=== PATIENT | female | born 1965 | race Two or more races ===

== ENCOUNTER → 2017-01-16 | Outpatient (CLI) | payer BC, OTHER ==
--- NOTE | 2017-01-16 09:45 | WOMENS IMAGING REPORT ---
EXAM DESCRIPTION: BILAT SCREENING MAMMO W/CAD COMPLETED DATE/TIME: 01/16/2017 7:56 am REASON FOR STUDY: ROUTINE SCREENING MAMMO, Z12.31 Z12.31 ENCNTR SCREEN MAMMOGRAM FOR MALIGNANT NEOP LASM OF AMANDA COMPARISON: 10/08/2010 TECHNIQUE: Standard craniocaudal and mediolateral oblique views of each breast recorded using digita l acquisition. LIMITATIONS: None. FINDINGS: No masses, calcifications or architectural distortion. No areas of suspicion. Read with the assistance of CAD. .[facility] - R2 Cenova Version 1.3 .[facility] - R2 Cenova Version 1.3 .[facility] - R2 Cenova Version 2.4 [place] [place] Cenova Version 2.4 .[facility] - R2 [employer] Version 9.2 IMPRESSION: NORMAL MAMMOGRAM. BIRADS 1. BREAST DENSITY: b. There are scattered areas of fibroglandular density. BIRAD: 1 NEGATIVE RECOMMENDATION: ROUTINE SCREENING COMMENT: The patient has been notified of the results by letter per MQSA requirements. Additional no tification policies are in place for contacting patient with suspicious or incomplete findings. Quality ID #[id number]: The [employer] recommends an annual screening mammogram for women aged 40 years or over. This facility utilizes a reminder system to ensure that all patients receive reminder letters, and/or direct phone calls for appointments. This includes reminders for routine scr eening mammograms, diagnostic mammograms, or other Breast Imaging Interventions when appropriate. Th is patient will be placed in the appropriate reminder system. The [employer] (ACR) has developed recommendations for screening MRI of the breast s in certain patient populations, to be used in conjunction with mammography. Breast MRI surveillanc e may be appropriate for women with more than 20% lifetime risk of developing breast cancer as deter mined by genetic testing, significant family history of the disease, or history of mantle radiation f or Hodgkins Disease. ACR Practice Guidelines 2008. TECHNICAL DOCUMENTATION: FINDING NUMBER: (1) ASSESSMENT: (1) JOB ID: [id number] [employer]- All Rights Reserved
== END ==
LOC: WI 07:21
PROVIDERS: ATTEND Physician Assistant
DX: Z12.31 Encounter for screening mammogram for malignant neoplasm of breast (principal)
CPT/HCPCS: 77067; G0202

== ENCOUNTER → 2017-03-29 | Outpatient (CLI) | payer OTHER ==
--- NOTE | 2017-03-29 11:18 | RADIOLOGY REPORT (SQ) ---
EXAM DESCRIPTION: U/S ABDOMEN COMPLETE W/DOPPLER COMPLETED DATE/TIME: 03/29/2017 10:19 am REASON FOR STUDY: UPPER ABD PAIN (R10.10) R10.10 UPPER ABDOMINAL PAIN, UNSPECIFIED COMPARISON: CT abdomen and pelvis 06/18/2008 TECHNIQUE: Dynamic and static grayscale images acquired of the abdomen and recorded on PACS. Additio nal selected color Doppler and spectral images recorded. LIMITATIONS: Midline bowel gas FINDINGS: PANCREAS: No masses. Visualized pancreatic duct normal caliber. LIVER: Echogenic, difficult to penetrate with the ultrasound energy from fatty infiltration. No flor s masses or biliary ductal dilatation. LIVER VASCULATURE: Normal directional flow of the main portal vein and hepatic veins. GALLBLADDER: Surgically absent ULTRASOUND-DETECTED ECKERT'S SIGN: Not applicable INTRAHEPATIC DUCTS AND COMMON DUCT: CBD and intrahepatic ducts normal caliber. No filling defects. INFERIOR VENA CAVA: Not well seen AORTA: No aneurysm. RIGHT KIDNEY: Normal size. Normal echogenicity. No solid or suspicious masses. No hydronephros is. No calcifications. LEFT KIDNEY: Normal size. Normal echogenicity. No solid or suspicious masses. No hydronephrosi s. No calcifications. SPLEEN: Normal size. No solid masses. PERITONEAL AND PLEURAL SPACES: No ascites or effusions. OTHER: No other significant finding. IMPRESSION: Post cholecystectomy Normal size liver with diffuse increased echogenicity from fatty infiltration. Otherwise unremarkable study TECHNICAL DOCUMENTATION: JOB ID: [id number]- All Rights Reserved
== END ==
LOC: RAD 09:33
PROVIDERS: ATTEND Physician Assistant
DX: R10.10 Upper abdominal pain, unspecified (principal)
CPT/HCPCS: 76700; 93976

== ENCOUNTER → 2017-09-25 | Outpatient (CLI) | payer SELFPAY ==
--- NOTE | 2017-09-25 12:30 | RADIOLOGY REPORT (SQ) ---
EXAM DESCRIPTION: HAND RIGHT 3 VIEWS COMPLETED DATE/TIME: 09/25/2017 9:42 am REASON FOR STUDY: M79.644 PAIN IN RIGHT FINGER(S) M79.644 PAIN IN RIGHT FINGER(S) COMPARISON: None. EXAM PARAMETERS: NUMBER OF VIEWS: Three views. TECHNIQUE: AP, lateral and oblique radiographic images acquired of the right hand. LIMITATIONS: None. FINDINGS: MINERALIZATION: Normal. BONES: No acute fracture or dislocation. No worrisome bone lesions. JOINTS: No effusions. SOFT TISSUES: Soft tissue vascular calcification. No foreign body. OTHER: No other significant finding. IMPRESSION: NEGATIVE STUDY OF THE RIGHT HAND. NO RADIOGRAPHIC EVIDENCE OF ACUTE INJURY. TECHNICAL DOCUMENTATION: JOB ID: [id number] [employer]- All Rights Reserved Reading location - IP/workstation name: [email or web address]
== END ==
LOC: RAD 09:27
PROVIDERS: ATTEND Physician Assistant
DX: M79.644 Pain in right finger(s) (principal)

== ENCOUNTER 2018-09-27 11:57 | Observation (INO) | payer BC ==
[2018-09-27] MEDS ORDERED: ASPIRIN 81 MG TABLET, CHEWABLE PO ONE (12:03)
[2018-09-27] MEDS ORDERED: NITROGLYCERIN 0.4 MG/TAB 25 TAB/BOTTLE ONE (12:28)
--- NOTE | 2018-09-27 12:35 | RADIOLOGY REPORT (SQ) ---
EXAM DESCRIPTION: CHEST SINGLE VIEW COMPLETED DATE/TIME: 09/27/2018 12:22 pm REASON FOR STUDY: cp COMPARISON: None. EXAM PARAMETERS: NUMBER OF VIEWS: One view. TECHNIQUE: Single frontal radiographic view of the chest acquired. RADIATION DOSE: NA LIMITATIONS: None. FINDINGS: LUNGS AND PLEURA: No opacities, masses or pneumothorax. No pleural effusion. MEDIASTINUM AND HILAR STRUCTURES: No masses. Contour normal. HEART AND VASCULAR STRUCTURES: Heart normal in size. Normal vasculature. BONES: No acute findings. HARDWARE: None in the chest. OTHER: No other significant finding. IMPRESSION: NO ACUTE RADIOGRAPHIC FINDING IN THE CHEST. TECHNICAL DOCUMENTATION: JOB ID: [id number] [employer]- All Rights Reserved Reading location - IP/workstation name: [email or web address]
[2018-09-27 12:45] LABS: ABSOLUTE EOSINOPHILS # (AUTO) 0.3 10^3/uL (0.0-0.6); ABSOLUTE LYMPHOCYTES (AUTO) 2.3 10^3/uL (0.5-4.7); ABSOLUTE MONOCYTES (AUTO) 0.5 10^3/uL (0.1-1.4); ABSOLUTE NEUT (AUTO) 5.5 10^3/uL (1.7-8.2); BASOPHILS % (AUTO) 0.4 % (0-2); EOSINOPHILS % (AUTO) 3.8 % (0-6); HEMATOCRIT 40.5 % (36.0-47.0); HEMOGLOBIN 13.9 g/dL (12.0-15.5); LYMPHOCYTES % (AUTO) 26.8 % (13-45); MEAN CORPUSCULAR HEMOGLOBIN 30.3 pg (27.0-33.4); MEAN CORPUSCULAR HGB CONC 34.3 g/dL (32.0-36.0); MEAN CORPUSCULAR VOLUME 88 fl (80-97); MONOCYTES % (AUTO) 5.5 % (3-13); PLATELET COUNT 270 10^3/uL (150-450); RED BLOOD COUNT 4.59 10^6/uL (3.72-5.28); RED CELL DISTRIBUTION WIDTH 12.9 % (11.5-14.0); SEGMENTED NEUTROPHILS % (AUTO) 63.5 % (42-78); TOTAL CELLS COUNTED % (AUTO) 100 %; WHITE BLOOD COUNT 8.7 10^3/uL (4.0-10.5)
[2018-09-27] MEDS ORDERED: NITROGLYCERIN 0.4 MG/TAB 25 TAB/BOTTLE SL PRN ×2 (12:48→18:36)
[2018-09-27 13:02] LABS: ALANINE AMINOTRANSFERASE 42 U/L (9-52); ALBUMIN 4.5 g/dL (3.5-5.0); ALKALINE PHOSPHATASE 83 U/L (38-126); ANION GAP 12 (5-19); ASPARTATE AMINO TRANSFERASE 33 U/L (14-36); BILIRUBIN,DIRECT 0.3 mg/dL (0.0-0.4); BILIRUBIN,TOTAL 0.4 mg/dL (0.2-1.3); BLOOD UREA NITROGEN 26 mg/dL (7-20); CALCIUM 9.6 mg/dL (8.4-10.2); CARBON DIOXIDE 24 mmol/L (22-30); CHLORIDE 101 mmol/L (98-107); CREATINE KINASE 76 U/L (30-135); GLUCOSE 333 mg/dL (75-110); POTASSIUM 5.2 mmol/L (3.6-5.0); SODIUM 137.1 mmol/L (137-145); TOTAL PROTEIN 8.1 g/dL (6.3-8.2)
[2018-09-27 13:11] LABS: LIPASE 648.2 U/L (23-300); TROPONIN I < 0.012 ng/mL
[2018-09-27 13:28] LABS: NT PRO BNP < 11 pg/mL (5-900)
--- NOTE | 2018-09-27 18:26 | ER Document Report ---
Entered by BENI DYER SCRIBE 09/27/18 1524 Acting as scribe for:BHAVIN PARIS DO ED General - General Chief Complaint: Chest Pain Stated Complaint: CHEST PAIN Time Seen by Provider: 09/27/18 12:20 Primary Care Provider: JOSAFAT DOWD PA-C [Primary Care Provider] - Follow up as needed Mode of Arrival: Ambulatory Information source: Patient Notes: Patient is a 53 year old female with insulin dependent diabetes presents to the emergency department complaining of chest pain and shortness of breath onset this morning. Patient states she has had general malaise for approximately 1 week. She states she woke up this morning, ate corn bread and had some milk and proceeded to "feel crazy". She states she checked her blood sugar and found it to be 300 and proceeded to take 30 units of insulin. She states shortly after she developed chest pain described as "an elephant sitting on my chest" and shortness of breath. She states she was given nitro by EMS which temporarily relieved her pain. She states her pain has returned and is radiates into her right shoulder and is exacerbated with deep breathing. Of significance, patient was diagnosed with a partial blockage a few years ago via catheterization in [place]. TRAVEL OUTSIDE OF THE [place] IN LAST 30 DAYS: No - Related Data Allergies/Adverse Reactions: ibuprofen [From Motrin] Adverse Reaction (Mild, Verified 07/31/15 11:07) stomach pain, NAUSEA Past Medical History - General Information source: Patient - Social History Smoking Status: Never Smoker Chew tobacco use (# tins/day): No Frequency of alcohol use: None Drug Abuse: None Family History: Reviewed & Not Pertinent Patient has suicidal ideation: No Patient has homicidal ideation: No - Past Medical History Cardiac Medical History: Reports: Hx Hypercholesterolemia, Hx Hypertension Pulmonary Medical History: Reports: Hx Asthma, Hx Sleep Apnea Endocrine Medical History: Reports: Hx Diabetes Mellitus Type 1 GI Medical History: Reports: Hx Gastroesophageal Reflux Disease Musculoskeletal Medical History: Reports Hx Arthritis Past Surgical History: Reports: Hx Section - x2, Hx Cholecystectomy, Hx Orthopedic Surgery - right wrist surgery - Immunizations Hx Diphtheria, Pertussis, Tetanus Vaccination: Yes - [id number] Review of Systems - Review of Systems Constitutional: No symptoms reported EENT: No symptoms reported Cardiovascular: See HPI, Chest pain Respiratory: See HPI, Short of breath Gastrointestinal: No symptoms reported Genitourinary: No symptoms reported Female Genitourinary: No symptoms reported Musculoskeletal: No symptoms reported Skin: No symptoms reported Hematologic/Lymphatic: No symptoms reported Neurological/Psychological: No symptoms reported -: Yes All other systems reviewed and negative Physical Exam - Vital signs Vitals: Pulse Ox 100 09/27/18 12:08 - Notes Notes: GENERAL: Alert, interacts well. No acute distress. HEAD: Normocephalic, atraumatic. EYES: Pupils equal, round, and reactive to light. Extraocular movements intact. ENT: Oral mucosa moist, tongue midline. NECK: Full range of motion. Supple. Trachea midline. LUNGS: Clear to auscultation bilaterally, no wheezes, rales, or rhonchi. No respiratory distress. Tender to palpation to the sternum which reproduces chief complaint. HEART: Regular rate and rhythm. No murmurs, gallops, or rubs. ABDOMEN: Soft, non-tender, no guarding, rigidity or rebounding. Non-distended. Bowel sounds present in all 4 quadrants. EXTREMITIES: Moves all 4 extremities spontaneously. NEUROLOGICAL: Alert and oriented x3. Normal speech. PSYCH: Normal affect, normal mood. SKIN: Warm, dry, normal turgor. Raised erythema across the upper and central abdomen, some below the umbilicus does cross midline. Erythema and skin break down underneath pantus, consistent with a yeast infection. Course - Re-evaluation Re-evalutation: 09/27/18 13:35 CBC unremarkable, d-dimer negative at 0.28, CMP shows slightly elevated potassium at 5.2, glucose is elevated at 333, lipase is elevated at 648.2, chest x-ray is unremarkable. Patient does have some sternal tenderness to palpation and mild epigastric tenderness to palpation, there is no right upper quadrant tenderness to palpation either. 09/27/18 14:[address] La rock, would like to repeat cardiac enzymes and then decide on disposition. I am agreeable to this plan. 09/27/18 18:12 Repeat cardiac enzymes are negative, he will place the patient on his service in observation status. He will continue to trend enzymes, consider stress test in the morning and treat the pancreatitis. Patient has risk factors for ischemic cardiac disease however I presently think this is more likely to be pancreatitis. Given her risk factors Dr. La rock agrees it is more prudent to watch the patient overnight. He is aware that the patient still has approximately 2 out of 5 pain however we both think this is coming from the pancreatitis. 09/27/18 18:25 - Vital Signs Vital signs: Temp Pulse Resp BP Pulse Ox 100 09/27/18 12:08 - Laboratory Result Diagrams: 09/27/18 12:20 09/27/18 12:20 Laboratory results interpreted by me: 09/27/18 12:20 Potassium 5.2 H BUN 26 H Glucose 333 H Lipase 648.2 H - EKG Interpretation by Me Additional EKG results interpreted by me: 09/27/18 18:24 EKG shows sinus tachycardia at a rate of 100, normal axis, normal intervals, no ST segment elevations or depressions, no T wave inversions, T wave flattening in 1 and aVL per my interpretation. Also flattened in V6 per my interpretation. Discharge - Discharge Clinical Impression: Chest pain, rule out acute myocardial infarction Pancreatitis Qualifiers: Chronicity: acute Pancreatitis type: unspecified pancreatitis type Acute pancreatitis complication: no infection or necrosis Qualified Code(s): K85.90 - Acute pancreatitis without necrosis or infection, unspecified Condition: Stable Disposition: ADMITTED OBSERVATION Admitting Provider: Hospitalist - [facility] Admitted: Telemetry Referrals: JOSAFAT DOWD PA-C [Primary Care Provider] - Follow up as needed I personally performed the services described in the documentation, reviewed and edited the documentation which was dictated to the scribe in my presence, and it accurately records my words and actions.
[2018-09-27] MEDS ORDERED: ONDANSETRON HCL INJ/PF 4 MG/2 ML SDV IV PRN (18:31)
[2018-09-27] MEDS ORDERED: OXYCODONE-ACETAMINOPHEN 5-325 MG TABLET PO PRN (18:31)
[2018-09-27] MEDS ORDERED: DEXTROSE 40% GEL 15 GM TUBE PO PRN ×2 (18:36)
[2018-09-27] MEDS ORDERED: DEXTROSE 50%-WATER 25 GM/50 ML DISP.SYRIN IV PRN ×2 (18:36)
[2018-09-27] MEDS ORDERED: GLUCAGON,HUMAN RECOMB 1 MG INJ IM PRN (18:36)
--- NOTE | 2018-09-27 18:51 | PDOC H&P ---
History of Present Illness Admission Date/PCP: 09/27/18 18:30 JOSAFAT DOWD PA-C History of Present Illness: BENJAMIN MERCEDES is a 53 year old female patient with past medical history of obesity and type 2 diabetes mellitus presents with chief complaint of chest pain. Reports she has been in her usual baseline state of health up until this morning when she started to have chest pain while working on her computer. She described the chest pain as "if an elephant is sitting on my chest" and it radiates to her right shoulder. Patient endorses associated shortness of breath. The chest pain is relieved by nitro which was given by EMS. Patient denies any cough palpitation or diaphoresis. Denies any nausea vomiting abdominal pain no change in her bowel habits. No urinary complaints. 2 sets of cardiac enzymes are negative. She has incidental elevated lipase of 682 but jamie baird does not have any complaint of abdominal pain. Past Medical History Cardiac Medical History: Reports: Hyperlipidema, Hypertension Denies: Coronary Artery Disease, Myocardial Infarction Pulmonary Medical History: Reports: Asthma, Sleep Apnea Denies: Bronchitis, Chronic Obstructive Pulmonary Disease (COPD), Pneumonia, Tuberculosis Neurological Medical History: Denies: Seizures Endocrine Medical History: Reports: Diabetes Mellitus Type 1 GI Medical History: Reports: Gastroesophageal Reflux Disease Musculoskeltal Medical History: Reports: Arthritis Hematology: Denies: Anemia Past Surgical History Past Surgical History: Reports: Section - x2, Cholecystectomy, Orthopedic Surgery - right wrist surgery Denies: Pacemaker Social History Smoking Status: Never Smoker Hx Recreational Drug Use: No Hx Prescription Drug Abuse: No - Advance Directive Resuscitation Status: Full Code Family History Family History: Reviewed & Not Pertinent Parental Family History Reviewed: Yes Children Family History Reviewed: Yes Sibling(s) Family History Reviewed.: Yes Medication/Allergy Home Medications: Metformin HCl [Glucophage] 1,000 mg PO BID 12/11/11 Pravastatin Sodium 40 mg PO DAILY 12/11/11 Cetirizine HCl [Zyrtec] 10 mg PO DAILY 07/29/15 Diclofenac Sodium [Voltaren] 75 mg PO DAILY 07/29/15 Glipizide [Glipizide Xl] 5 mg PO DAILY 07/29/15 Insulin Glargine,Hum.rec.anlog [Lantus] 40 unit SQ QHS 07/29/15 Lisinopril/Hydrochlorothiazide [Lisinopril-Hctz 20-25 mg Tab] 1 each PO DAILY 07/29/15 Diphenhydramine HCl [Benadryl] 25 mg PO ASDIR PRN 07/31/15 Allergies/Adverse Reactions: ibuprofen [From Motrin] Adverse Reaction (Mild, Verified 07/31/15 11:07) stomach pain, NAUSEA Review of Systems Constitutional: ABSENT: chills, fever(s), headache(s), weight gain, weight loss Eyes: ABSENT: visual disturbances Ears: ABSENT: hearing changes Cardiovascular: PRESENT: chest pain Respiratory: PRESENT: dyspnea Gastrointestinal: ABSENT: abdominal pain, constipation, diarrhea, hematemesis, hematochezia, nausea, vomiting Genitourinary: ABSENT: dysuria, hematuria Musculoskeletal: ABSENT: joint swelling Integumentary: ABSENT: rash, wounds Neurological: ABSENT: abnormal gait, abnormal speech, confusion, dizziness, focal weakness, syncope Psychiatric: ABSENT: anxiety, depression, homidical ideation, suicidal ideation Endocrine: ABSENT: cold intolerance, heat intolerance, polydipsia, polyuria Hematologic/Lymphatic: ABSENT: easy bleeding, easy bruising Physical Exam Vital Signs: Temp Pulse Resp BP Pulse Ox 100 09/27/18 12:08 Intake & Output 09/26/18 09/27/18 09/28/18 06:59 06:59 06:59 Weight 82.554 kg General appearance: PRESENT: no acute distress, well-developed, well-nourished Head exam: PRESENT: atraumatic, normocephalic Eye exam: PRESENT: conjunctiva pink, EOMI, PERRLA. ABSENT: scleral icterus Ear exam: PRESENT: normal external ear exam Mouth exam: PRESENT: moist, tongue midline Neck exam: ABSENT: carotid bruit, JVD, lymphadenopathy, thyromegaly Respiratory exam: PRESENT: clear to auscultation venita. ABSENT: rales, rhonchi, wheezes Cardiovascular exam: PRESENT: RRR. ABSENT: diastolic murmur, rubs, systolic murmur Pulses: PRESENT: normal dorsalis pedis pul Vascular exam: PRESENT: normal capillary refill GI/Abdominal exam: PRESENT: normal bowel sounds, soft. ABSENT: distended, gua rding, mass, organolmegaly, rebound, tenderness Rectal exam: PRESENT: deferred Extremities exam: PRESENT: full ROM. ABSENT: calf tenderness, clubbing, pedal edema Neurological exam: PRESENT: alert, awake, oriented to person, oriented to place, oriented to time, oriented to situation, CN II-XII grossly intact. ABSENT: egrri r sensory deficit Psychiatric exam: PRESENT: appropriate affect, normal mood. ABSENT: homicidal ideation, suicidal ideation Skin exam: PRESENT: dry, intact, warm. ABSENT: cyanosis, rash Results Laboratory Results: 09/27/18 12:20 09/27/18 12:20 09/27/18 09/27/18 12:20 12:20 WBC 8.7 RBC 4.59 Hgb 13.9 Hct 40.5 MCV 88 MCH 30.3 MCHC 34.3 RDW 12.9 Plt Count 270 Seg Neutrophils % 63.5 Lymphocytes % 26.8 Monocytes % 5.5 Eosinophils % 3.8 Basophils % 0.4 Absolute Neutrophils 5.5 Absolute Lymphocytes 2.3 Absolute Monocytes 0.5 Absolute Eosinophils 0.3 Absolute Basophils 0.0 Sodium 137.1 Potassium 5.2 H Chloride 101 Carbon Dioxide 24 Anion Gap 12 BUN 26 H Creatinine 0.86 Est GFR ( Amer) > 60 Est GFR (Non-Af Amer) > 60 Glucose 333 H Calcium 9.6 Total Bilirubin 0.4 AST 33 ALT 42 Alkaline Phosphatase 83 Total Protein 8.1 Albumin 4.5 Lipase 648.2 H 09/27/18 09/27/18 09/27/18 12:20 12:20 16:15 Creatine Kinase 76 CK-MB (CK-2) 0.30 Troponin I < 0.012 < 0.012 NT-Pro-B Natriuret Pep < 11 Impressions: Chest X-Ray 09/27/18 12:03 IMPRESSION: NO ACUTE RADIOGRAPHIC FINDING IN THE CHEST. Assessment & Plan - Diagnosis (1) Chest pain Qualifiers: Chest pain type: other chest pain Qualified Code(s): R07.89 - Other chest pain; R07.8 - Other chest pain Is this a current diagnosis for this admission?: Yes Plan: Since patient has multiple risk factor for acute coronary syndrome it is appropriate to admit this patient for observation and subjected to cardiac stress test in the morning. (2) Hypertension Qualifiers: Hypertension type: essential hypertension Qualified Code(s): I10 - Essential (primary) hypertension Is this a current diagnosis for this admission?: Yes Plan: Continue home medication (3) Hyperlipidemia Is this a current diagnosis for this admission?: Yes Plan: Continue home medication (4) Type 2 diabetes mellitus Is this a current diagnosis for this admission?: Yes Plan: We will put her on sliding scale and continue home medication except for metformin
[2018-09-27] MEDS: ENOXAPARIN SODIUM INJ 40 MG/0.4 ML DISP.SYRIN SUBCUT SCH (19:41)
[2018-09-27] MEDS: INSULIN LISPRO 100 UNIT/ML 3 ML VIAL SUBCUT SCH (21:08)
[2018-09-27] MEDS: FAMOTIDINE 20 MG TABLET PO SCH (22:55)
--- NOTE | 2018-09-28 08:03 | EKG REPORT ---
SEVERITY:- BORDERLINE ECG - SINUS TACHYCARDIA BORDERLINE T WAVE ABNORMALITIES : Confirmed by: Allen Waters MD 28-Sep-2018 08:02:25
[2018-09-28] MEDS: INSULIN LISPRO 100 UNIT/ML 3 ML VIAL SUBCUT SCH ×2 (08:05→11:54)
[2018-09-28 08:55] LABS: DIRECT LDL 99 mg/dL (<100); TRIGLYCERIDES 831 mg/dL (<150)
[2018-09-28 11:35] VITALS: BP 143/76
[2018-09-28] MEDS: FAMOTIDINE 20 MG TABLET PO SCH (11:54)
[2018-09-28] MEDS: ENOXAPARIN SODIUM INJ 40 MG/0.4 ML DISP.SYRIN SUBCUT SCH (11:58)
[2018-09-28] MEDS ORDERED: REGADENOSON INJ 0.4 MG/5 ML DISP.SYRIN IV ONE (12:15)
--- NOTE | 2018-09-28 13:53 | PDOC DISCHARGE SUMMARY ---
General - Admit/Disc Date/PCP Admission Date/Primary Care Provider: 09/27/18 18:30 JOSAFAT DOWD PA-C Discharge Date: 09/28/18 - Discharge Diagnosis (1) Hyperglyceridemia Is this a current diagnosis for this admission?: Yes Summary: Patient started on TriCor (2) Chest pain Is this a current diagnosis for this admission?: Yes (3) Hypertension Is this a current diagnosis for this admission?: Yes (4) Hyperlipidemia Is this a current diagnosis for this admission?: Yes (5) Type 2 diabetes mellitus Is this a current diagnosis for this admission?: Yes - Additional Information Resuscitation Status: Full Code Home Medications: Diclofenac Sodium 75 mg PO BID 09/27/18 Diphenhydramine HCl [Benadryl] 50 mg PO QHS 09/27/18 Gabapentin [Neurontin 400 mg Capsule] 400 mg PO QAM 09/27/18 Gabapentin [Neurontin 400 mg Capsule] 800 mg PO QHS 09/27/18 Glipizide [Glocotrol 5 Mg Tablet] 10 mg PO QHS 09/27/18 Insulin Glargine,Hum.rec.anlog [Lantus Insulin Inj 300 Unit/3 ml Pen] 30 unit SUBCUT NOON 09/27/18 Metformin HCl [Glucophage] 1,000 mg PO BID 09/27/18 History of Present Illness History of Present Illness: BENJAMIN MERCEDES is a 53 year old female patient with past medical history of obesity and type 2 diabetes mellitus presents with chief complaint of chest pain. Reports she has been in her usual baseline state of health up until this morning when she started to have chest pain while working on her computer. She described the chest pain as "if an elephant is sitting on my chest" and it radiates to her right shoulder. Patient endorses associated shortness of breath. The chest pain is relieved by nitro which was given by EMS. Patient denies any cough palpitation or diaphoresis. Denies any nausea vomiting abdominal pain no change in her bowel habits. No urinary complaints. 2 sets of cardiac enzymes are negative. She has incidental elevated lipase of 682 but patient does not have any complaint of abdominal pain. Hospital Course Hospital Course: BENJAMIN MERCEDES is a 53 year old female patient with past medical history of obesity and type 2 diabetes mellitus presents with chief complaint of chest pain. Since patient has multiple risk factors for acute coronary syndrome she is admitted for observation and we will cycle her cardiac enzymes and she has also cardiac stress test this morning. History set of cardiac enzym es are negative and the cardiac stress test is reported normal. Her blood work shows hemoglobin A1c of 9.6 and her lipid panel shows a triglyceride level of 831 and total cholesterol of 241. Her lipase level normalized. Patient admits that she eats indiscriminately fast food and fried chickens and fried chicken. I counseled her to do lifestyle modification in the form of healthy diet regular exercise and weight loss. For the triglyceridemia I will start her on TriCor. Patient also advised to follow-up with her primary care physician to adjust her diabetic medications.. Physical Exam Vital Signs: Temp Pulse Resp BP Pulse Ox 97.7 F 105 H 17 143/76 H 100 09/28/18 08:00 09/28/18 08:00 09/28/18 08:00 09/28/18 08:00 09/28/18 08:00 Intake & Output 09/27/18 09/28/18 09/29/18 06:59 06:59 06:59 Intake Total 200 Balance 200 Weight 83.3 kg Results Laboratory Results: 09/27/18 12:20 09/27/18 12:20 09/28/18 09/28/18 07:10 07:10 Triglycerides 831 H Cholesterol 241.60 H LDL Cholesterol Direct 99 VLDL Cholesterol UNABLE TO CALCULATE HDL Cholesterol 31 L Lipase 226.7 09/27/18 09/27/18 09/27/18 12:20 12:20 16:15 Creatine Kinase 76 CK-MB (CK-2) 0.30 Troponin I < 0.012 < 0.012 NT-Pro-B Natriuret Pep < 11 09/28/18 07:10 Creatine Kinase CK-MB (CK-2) Troponin I < 0.012 NT-Pro-B Natriuret Pep Impressions: Chest X-Ray 09/27/18 12:03 IMPRESSION: NO ACUTE RADIOGRAPHIC FINDING IN THE CHEST. Qualifiers - * PATIENT BEING DISCHARGED WITH ANY OF THE FOLLOWING DIAGNOSIS: No
--- NOTE | 2018-10-02 00:22 | DRAGON STRESS TEST REPORT ---
Intravenous Lexiscan Cardiolite stress test using single photon emmision computerized tomography. Date of procedure: 09/28/2018. Ordering Provider: Dr. Trotter. Patient's status: Up in Patient Indication: Chest pain. Coronary risk factors: Age, diabetes, hypertension, and dyslipidemia. Resting EKG: Sinus Rhythm. Poor R wave leads V1 to leads V4. Stress EKG: No changes of ischemia. Reason for termination: Protocol. Conclusions: Normal EKG and hemodynamic response to IV Lexiscan. Nuclear data: At rest the patient was given 9.83 millicuries of technetium 99m sestamibi injected intravenously. As per protocol rest non gated SPECT images were obtained. Subsequently the patient was given intravenous Lexiscan at a dose of 0.4 mg in 5 mL intravenously, followed by flush with normal saline. Subsequently the stress dose of 31.5 millicuries of technetium 99m sestamibi was injected intravenously. As per protocol stress gated images were obtained. Nuclear interpretation: Review of images showed that all segments of the myocardium had normal perfusion at rest, and normal perfusion post stress with IV Lexiscan. All segments of the myocardium had normal motion, contraction, and thickening by gated study. T. I D. ratio was read asab normal at 1.39. Visually this is not reliable.. There is no transient ischemic dilatation of the left ventricle. Computer read rest, and stress left ventricular ejection fraction were 61 %, and 59 %, respectively. Conclusion: 1. There is no scintigraphic evidence of Lexiscan induced myocardial ischemia. 2. There is no scintigraphic evidence of myocardial infarction/scar. Recommendations: Aggressive risk factor modification, and treating the underlying co- morbidities. MTDD
== END 2018-09-28 15:00 | disposition home or self-care (01) ==
LOC: ER 11:57 → EH 18:30 → 4W 21:15
PROVIDERS: ADMIT Internal Medicine; ATTEND Internal Medicine
DX: E78.1 Pure hyperglyceridemia (principal); R07.9 Chest pain, unspecified; I10 Essential (primary) hypertension; E78.5 Hyperlipidemia, unspecified; R06.02 Shortness of breath; E11.9 Type 2 diabetes mellitus without complications; R74.8 Abnormal levels of other serum enzymes; R53.81 Other malaise; R10.816 Epigastric abdominal tenderness; R10.11 Right upper quadrant pain; R00.0 Tachycardia, unspecified; L53.9 Erythematous condition, unspecified; Z90.49 Acquired absence of other specified parts of digestive tract; Z79.4 Long term (current) use of insulin; Z98.890 Other specified postprocedural states
CPT/HCPCS: 93005; 99285; 96372; 36415 ×2; 82553; 82962 ×2; 82550; 83690 ×2; 85025; 80053; 84484 ×2; 83036; 85379; 80061; 83880; 93017; 71045; 78452; 93010; G0378 ×3; A9500; J2785; J1815 ×2; J1650 ×2

== ENCOUNTER 2019-03-24 15:24 | Emergency (ER) | payer SELFPAY ==
[2019-03-24] MEDS ORDERED: AMOXICILLIN TR/POT CLAVULANATE 500-125 MG TAB PO ONE (17:57)
--- NOTE | 2019-03-24 18:02 | ER Document Report ---
HPI - HPI Patient complains to provider of: abscess face Time Seen by Provider: 03/24/19 16:55 Pain Level: 2 Context: 54-year-old female with insulin-dependent diabetes mellitus and hypertension presents to the emergency department with an abscess on her face. She said that she first noticed it Monday instead of is a pimple, she tried to pop it, and then it grew in size and it is very painful and red. Patient states that she is having mild difficulty opening up her jaw all the way, is having pain just below her eye and right next to her nostril. Patient is able to swallow. Patient denies fevers or chills, denies any airway obstruction or shortness of breath, denies any nausea or vomiting, no other complaints. Patient states that she had some "old amoxicillin laying around so I took 2 pills". - CONSTITUTIONAL Constitutional: DENIES: Fever - REPRODUCTIVE Reproductive: DENIES: : Past Medical History - Social History Smoking Status: Never Smoker Chew tobacco use (# tins/day): No Drug Abuse: None Family History: Reviewed & Not Pertinent Patient has suicidal ideation: No Patient has homicidal ideation: No - Past Medical History Cardiac Medical History: Reports: Hx Hypercholesterolemia, Hx Hypertension Denies: Hx Coronary Artery Disease, Hx Heart Attack Pulmonary Medical History: Reports: Hx Asthma, Hx Sleep Apnea Denies: Hx Bronchitis, Hx COPD, Hx Pneumonia, Hx Tuberculosis Neurological Medical History: Denies: Hx Cerebrovascular Accident, Hx Seizures Endocrine Medical History: Reports: Hx Diabetes Mellitus Type 1, Hx Diabetes Mellitus Type 2 Renal/ Medical History: Denies: Hx Peritoneal Dialysis GI Medical History: Reports: Hx Gastroesophageal Reflux Disease Musculoskeletal Medical History: Reports Hx Arthritis Past Surgical History: Reports: Hx Section - x2, Hx Cholecystectomy, Hx Orthopedic Surgery - right wrist surgery. Denies: Hx Pacemaker - Immunizations Hx Diphtheria, Pertussis, Tetanus Vaccination: Yes - [id number] Vertical Provider Document - CONSTITUTIONAL Notes: PHYSICAL EXAMINATION: Reviewed vital signs and charting by RN GENERAL: Alert, interacts well. No acute distress. HEAD: Normocephalic, atraumatic. EYES: Pupils equal and round. Extraocular movements intact. ENT: Oral mucosa moist, tongue midline. NECK: Full range of motion. Trachea midline. LUNGS: Clear to auscultation bilaterally, no wheezes, rales, or rhonchi. No respiratory distress. HEART: Regular rate and rhythm. No murmur ABDOMEN: soft, non-tender. No distention. Bowel sounds present EXTREMITIES: Moves all 4 extremities spontaneously. No edema, No cyanosis. PSYCH: Normal affect, normal mood. SKIN: Warm, dry, normal turgor. Right cheek with an abscess with a 3 x 3 cm area of induration and a very small area of fluctuance external, there is a small amount of surrounding cellulitis, palpating the vehicle space there was no area of fluctuance amenable to a needle aspiration - INFECTION CONTROL TRAVEL OUTSIDE OF THE [place] IN LAST 30 DAYS: No Course - Re-evaluation Re-evalutation: 03/24/19 18:[address] Vargas ENT on-call, who agreed to see the patient in his office in the morning. The abscess was not amendable to an incision and drainage due to the location and there was no area in the bugle aspect amendable to aspiration with an 18-gauge needle. His recommendation was to place her on Augmentin every 12 hours for 7 days and I gave patient referral to see him in the morning. Patient agrees with plan and she is stable for discharge. - Vital Signs Vital signs: Temp Pulse Resp BP Pulse Ox 98.5 F 100 18 122/69 96 03/24/19 15:47 03/24/19 15:47 03/24/19 15:47 03/24/19 15:47 03/24/19 15:47 Discharge - Discharge Clinical Impression: Abscess, Facial cellulitis Condition: Good Disposition: HOME, SELF-CARE Instructions: Abscess ([facility]) Additional Instructions: You were seen in the emergency department this afternoon for cellulitis of the face and an abscess. Because there was not an area inside her mouth to do a needle aspiration it was not appropriate to perform an incision and drainage on your face. Because of that we are going to place you on an antibiotic called Augmentin. You will get your first dose here and you will take 1 pill in the morning and in the evening for 7 days. Also, I have given you a referral to Dr. Vargas, ENT, and you need to call his office in the morning for follow-up and is he may be able to drain the abscess. Please return to the emergency department if you start to get airway compromise, acute shortness of breath, severe lockjaw, high fevers, you pass out, or you have any other concerning symptoms. Prescriptions: Amox Tr/Potassium Clavulanate [Augmentin 875-125 Tablet] 1 tab PO BID 14 Days tablet Forms: Return to Work Referrals: JOSAFAT DOWD PA-C [Primary Care Provider] - Follow up as needed MEGGAN VARGAS MD [ACTIVE STAFF] - 03/25/19 8:00 am
[2019-03-24 18:27] VITALS: BP 129/70
== END 2019-03-24 18:27 | disposition home or self-care (01) ==
LOC: ER 15:24
DX: L02.01 Cutaneous abscess of face (principal); L03.211 Cellulitis of face; R68.84 Jaw pain; J45.909 Unspecified asthma, uncomplicated; E11.9 Type 2 diabetes mellitus without complications; Z79.4 Long term (current) use of insulin; I10 Essential (primary) hypertension
CPT/HCPCS: 99282

== ENCOUNTER → 2020-02-04 | Outpatient (CLI) | payer BC ==
--- NOTE | 2020-02-04 14:29 | RADIOLOGY REPORT (SQ) ---
EXAM DESCRIPTION: U/S RETROPERITON (RENAL/AORTA) IMAGES COMPLETED DATE/TIME: 02/04/2020 2:14 pm REASON FOR STUDY: R31.9 HEMATURIA, UNSPECIFIED R31.9 HEMATURIA, UNSPECIFIED COMPARISON: None. TECHNIQUE: Dynamic and static grayscale images acquired of the kidneys and bladder and recorded on P ACS. Additional selected color Doppler and spectral images recorded. LIMITATIONS: None. FINDINGS: RIGHT KIDNEY: Normal size, 11.8 cm. Normal echogenicity. No solid or suspicious masses. 2 .5 cm lower pole cyst. No hydronephrosis. No calcifications. LEFT KIDNEY: Normal size, 11.7 cm. Normal echogenicity. No solid or suspicious masses. No hydronephr osis. No calcifications. BLADDER: No masses. Bilateral ureteral jets. OTHER FINDINGS: No other significant finding. IMPRESSION: NORMAL RENAL AND BLADDER ULTRASOUND. TECHNICAL DOCUMENTATION: JOB ID: [id number] 2010 [employer]- All Rights Reserved Reading location - IP/workstation name: [email or web address]
--- NOTE | 2020-02-04 15:30 | RADIOLOGY REPORT (SQ) ---
EXAM DESCRIPTION: KUB/ABDOMEN (SINGLE VIEW) IMAGES COMPLETED DATE/TIME: 02/04/2020 1:54 pm REASON FOR STUDY: R10.12 UNSPECIFIED ABDOMINAL PAIN R31.9 HEMATURIA, UNSPECIFIED COMPARISON: None. NUMBER OF VIEWS: One view. TECHNIQUE: Supine radiographic image of the abdomen acquired. LIMITATIONS: None. FINDINGS: BOWEL GAS PATTERN: Normal bowel gas pattern. No dilated loops. CALCIFICATIONS: No suspicious calcifications. SOFT TISSUES: No gross mass or suggestion of organomegaly. HARDWARE: None in the abdomen. BONES: No acute fracture. No worrisome bone lesions. OTHER: No other significant finding. IMPRESSION: NO RADIOGRAPHIC EVIDENCE FOR ACUTE ABDOMINAL DISEASE. TECHNICAL DOCUMENTATION: JOB ID: [id number] 2010 [employer]- All Rights Reserved Reading location - IP/workstation name: [email or web address]
== END ==
LOC: RAD 13:34
PROVIDERS: ATTEND Physician Assistant
DX: R31.9 Hematuria, unspecified (principal); M54.6 Pain in thoracic spine
CPT/HCPCS: 74018; 76770

== ENCOUNTER → 2020-02-11 | Outpatient (CLI) | payer BC ==
--- NOTE | 2020-02-11 11:07 | RADIOLOGY REPORT (SQ) ---
EXAM DESCRIPTION: CT ABDOMEN WITH IV ORAL CONT IMAGES COMPLETED DATE/TIME: 02/11/2020 8:39 am REASON FOR STUDY: ABD PAIN, LUQ (R10.12) R10.12 LEFT UPPER QUADRANT PAIN COMPARISON: Renal ultrasound dated 02/04/2020 TECHNIQUE: CT scan of the abdomen performed with intravenous and with oral contrast using helical sc anning technique with dynamic intravenous contrast injection. Images reviewed with lung, soft tissue, and bone windows. Reconstructed coronal and sagittal MPR images reviewed. Delayed images for evaluat ion of the urinary system also acquired and evaluated. All images stored on PACS. All CT scanners at this facility use dose modulation, iterative reconstruc tion, and/or weight based dosing when appropriate to reduce radiation dose to as low as reasonably ac hievable (ALARA). [facility]: Dose Right [facility]: CareDose [facility]: Dose Right [facility]: Teradose 4D [facility]: Mobile2Me CONTRAST TYPE AND DOSE: contrast/concentration: Isovue 350.00 mmol/ml; Total Contrast Delivered: 97. 0 ml; Total Saline Delivered: 72.0 ml RENAL FUNCTION: Creatinine 0.7 RADIATION DOSE: CT Rad equipment meets quality standard of care and radiation dose reduction techniq ues were employed. CTDIvol: 19.2 - 19.2 mGy. DLP: 1313 mGy-cm. . LIMITATIONS: None. FINDINGS: LOWER CHEST: No significant findings. No nodules or infiltrates. LIVER: Hepatic steatosis. Hepatomegaly. The liver measures 20.3 cm in cranial caudal dimensions. N o focal masses. SPLEEN: Normal size. No focal lesions. PANCREAS: No masses. No significant calcifications. No adjacent inflammation or peripancreatic fluid collections. Pancreatic duct not dilated. GALLBLADDER: Surgically absent. ADRENAL GLANDS: No significant masses or asymmetry. RIGHT KIDNEY AND URETER: No solid masses. There is a simple cyst off the inferior pole the right kid perico. This measures approximately 2 cm. No significant calcifications. No hydronephrosis or hydro ureter. LEFT KIDNEY AND URETER: There is a small hypoattenuating lesions in the left kidney this is in the mi dpole. It is too small to accurately characterize. No significant calcifications. No hydronephro sis or hydroureter. AORTA AND VESSELS: No aneurysm. No dissection. Renal arteries, SMA, celiac without stenosis. RETROPERITONEUM: No retroperitoneal adenopathy, hemorrhage or masses. BOWEL AND PERITONEAL CAVITY: No masses or inflammatory changes. No free fluid or peritoneal masses. APPENDIX: Not visualized. ABDOMINAL WALL: No masses. No hernias. BONES: No significant or acute findings. OTHER: No other significant finding. IMPRESSION: Hepatomegaly and hepatic steatosis. No other significant findings in the abdomen. TECHNICAL DOCUMENTATION: JOB ID: [id number] Quality ID # [id number]: Final reports with documentation of one or more dose reduction techniques (e.g., Au tomated exposure control, adjustment of the mA and/or kV according to patient size, use of iterative reconstruction technique) 2010 [employer]- All Rights Reserved Reading location - IP/workstation name: [email or web address]
== END ==
LOC: RAD 07:56
PROVIDERS: ATTEND Physician Assistant
DX: R10.12 Left upper quadrant pain (principal)
CPT/HCPCS: 74160; 82565

== ENCOUNTER 2020-05-31 10:22 | Emergency (ER) | payer BC ==
--- NOTE | 2020-05-31 11:33 | ER Document Report ---
ED Medical Screen (RME) - General Chief Complaint: Chest Pain > 30 Stated Complaint: SHORTNESS OF BREATH,DIZZINESS,BACK PAIN,CHEST PAIN Time Seen by Provider: 05/31/20 11:30 Primary Care Provider: JOSAFAT DOWD PA-C [Primary Care Provider] - Follow up as needed Mode of Arrival: Ambulatory Information source: Patient Notes: 55-year-old female presented to ED with chest pain going through to the back with body aches cough and congestion. She does have known coronary artery disease. She states she had a heart cath in the distant past and they told her that there was 50% clot at that time but did not need a stent at that time. She also has diabetes cholesterol. She states she was tested for Covid about 3 weeks ago but at that time she did not have any symptoms and now she does. Patient is alert she does seem to be having some trouble breathing to the mask lungs sound clear at this time. We will get all of the Covid testing with a strep flu as well as the chest pain protocol. I have greeted and performed a rapid initial assessment of this patient. A comprehensive ED assessment and evaluation of the patient, analysis of test results and completion of medical decision making process will be conducted by an additional ED providers. TRAVEL OUTSIDE OF THE [place] IN LAST 30 DAYS: No - Related Data Allergies/Adverse Reactions: ibuprofen [From Motrin] Adverse Reaction (Mild, Verified 03/24/19 15:43) stomach pain, NAUSEA Past Medical History - Past Medical History Cardiac Medical History: Reports: Hx Hypercholesterolemia, Hx Hypertension Denies: Hx Coronary Artery Disease, Hx Heart Attack Pulmonary Medical History: Reports: Hx Asthma, Hx Sleep Apnea Denies: Hx Bronchitis, Hx COPD, Hx Pneumonia, Hx Tuberculosis Neurological Medical History: Denies: Hx Cerebrovascular Accident, Hx Seizures Endocrine Medical History: Reports: Hx Diabetes Mellitus Type 1, Hx Diabetes Mellitus Type 2 Renal/ Medical History: Denies: Hx Peritoneal Dialysis GI Medical History: Reports: Hx Gastroesophageal Reflux Disease Musculoskeltal Medical History: Reports Hx Arthritis Past Surgical History: Reports: Hx Section - x2, Hx Cholecystectomy, Hx Orthopedic Surgery - right wrist surgery. Denies: Hx Pacemaker - Immunizations Hx Diphtheria, Pertussis, Tetanus Vaccination: Yes - [id number] Physical Exam - Vital signs Vitals: Temp Pulse Resp BP Pulse Ox 98.6 F 81 16 129/59 H 100 05/31/20 10:40 05/31/20 10:40 05/31/20 10:40 05/31/20 10:40 05/31/20 10:40 Course - Vital Signs Vital signs: Temp Pulse Resp BP Pulse Ox 98.6 F 81 16 129/59 H 100 05/31/20 10:40 05/31/20 10:40 05/31/20 10:40 05/31/20 10:40 05/31/20 10:40 Doctor's Discharge - Discharge Referrals: JOSAFAT DOWD PA-C [Primary Care Provider] - Follow up as needed
--- NOTE | 2020-05-31 12:23 | RADIOLOGY REPORT (SQ) ---
EXAM DESCRIPTION: CHEST SINGLE VIEW IMAGES COMPLETED DATE/TIME: 05/31/2020 11:51 am REASON FOR STUDY: cough congestion chest and upper back pain COMPARISON: Chest films 12/11/2011, 09/27/2018 EXAM PARAMETERS: NUMBER OF VIEWS: One view. TECHNIQUE: Single frontal radiographic view of the chest acquired. RADIATION DOSE: NA LIMITATIONS: None. FINDINGS: LUNGS AND PLEURA: No opacities, masses or pneumothorax. No pleural effusion. MEDIASTINUM AND HILAR STRUCTURES: No masses. Contour normal. HEART AND VASCULAR STRUCTURES: Heart normal in size. Normal vasculature. BONES: No acute findings. HARDWARE: None in the chest. OTHER: No other significant finding. IMPRESSION: NO ACUTE RADIOGRAPHIC FINDING IN THE CHEST. TECHNICAL DOCUMENTATION: JOB ID: [id number] 2010 [employer]- All Rights Reserved Reading location - IP/workstation name: [id number]
[2020-05-31 13:56] LABS: ABSOLUTE EOSINOPHILS # (AUTO) 0.1 10^3/uL (0.0-0.6); ABSOLUTE LYMPHOCYTES (AUTO) 1.5 10^3/uL (0.5-4.7); ABSOLUTE MONOCYTES (AUTO) 0.4 10^3/uL (0.1-1.4); ABSOLUTE NEUT (AUTO) 3.3 10^3/uL (1.7-8.2); BASOPHILS % (AUTO) 0.2 % (0-2); EOSINOPHILS % (AUTO) 1.5 % (0-6); HEMATOCRIT 43.2 % (36.0-47.0); HEMOGLOBIN 14.4 g/dL (12.0-15.5); LYMPHOCYTES % (AUTO) 27.8 % (13-45); MEAN CORPUSCULAR HEMOGLOBIN 28.7 pg (27.0-33.4); MEAN CORPUSCULAR HGB CONC 33.3 g/dL (32.0-36.0); MEAN CORPUSCULAR VOLUME 86 fl (80-97); MONOCYTES % (AUTO) 7.6 % (3-13); PLATELET COUNT 189 10^3/uL (150-450); SEGMENTED NEUTROPHILS % (AUTO) 62.9 % (42-78); TOTAL CELLS COUNTED % (AUTO) 100 %; WHITE BLOOD COUNT 5.3 10^3/uL (4.0-10.5)
[2020-05-31 14:13] LABS: ALBUMIN 4.4 g/dL (3.5-5.0); ALKALINE PHOSPHATASE 124 U/L (38-126); ANION GAP 12 (5-19); ASPARTATE AMINO TRANSFERASE 42 U/L (14-36); BILIRUBIN,DIRECT 0.2 mg/dL (0.0-0.4); BILIRUBIN,TOTAL 0.7 mg/dL (0.2-1.3); BLOOD UREA NITROGEN 16 mg/dL (7-20); CALCIUM 8.8 mg/dL (8.4-10.2); CARBON DIOXIDE 26 mmol/L (22-30); CHLORIDE 103 mmol/L (98-107); CREATINE KINASE 47 U/L (30-135); GLUCOSE 166 mg/dL (75-110); POTASSIUM 5.3 mmol/L (3.6-5.0); TOTAL PROTEIN 8.5 g/dL (6.3-8.2)
[2020-05-31 14:14] LABS: A TYPE INFLUENZA AG NEGATIVE (NEGATIVE); B INFLUENZA AG NEGATIVE (NEGATIVE)
--- NOTE | 2020-05-31 15:57 | ER Document Report ---
Entered by OBDULIA RUTH SCRIBE 05/31/20 1437 Acting as scribe for:JUS GONZALEZ MD ED General - General Chief Complaint: Chest Pain > 30 Stated Complaint: SHORTNESS OF BREATH,DIZZINESS,BACK PAIN,CHEST PAIN Time Seen by Provider: 05/31/20 11:30 Primary Care Provider: JOSAFAT DOWD PA-C [Primary Care Provider] - Follow up as needed Mode of Arrival: Ambulatory Information source: Patient Notes: This 55 year old female patient presents to the ED today with complaints of nonproductive cough and body aches for the past x2 days. Patient reports associated chest pain with cough. 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 She was tested at that time with negative results and was asymptomatic until x2 days ago. She discloses that she is tested frequently and has not had any contact with those [employer] employees. TRAVEL OUTSIDE OF THE [place] IN LAST 30 DAYS: No - Related Data Allergies/Adverse Reactions: ibuprofen [From Motrin] Adverse Reaction (Mild, Verified 03/24/19 15:43) stomach pain, NAUSEA Home Medications: Novolog, Lantus, Atorvastatin, Clonidine, Diclofenac, Hydroxyzine, Nystatin cream, Gabapentin, Zoloft, Pantoprazole, Synjardy XR, Alendronate Sodium Past Medical History - General Information source: Patient, [facility] Records - Social History Smoking Status: Never Smoker Cigarette use (# per day): No Chew tobacco use (# tins/day): No Smoking Education Provided: No Frequency of alcohol use: None Drug Abuse: None Family History: Reviewed & Not Pertinent - Past Medical History Cardiac Medical History: Reports: Hx Hypercholesterolemia, Hx Hypertension Pulmonary Medical History: Reports: Hx Asthma, Hx Sleep Apnea Endocrine Medical History: Reports: Hx Diabetes Mellitus Type 1, Hx Diabetes Mellitus Type 2 GI Medical History: Reports: Hx Gastroesophageal Reflux Disease Musculoskeletal Medical History: Reports Hx Arthritis Past Surgical History: Reports: Hx Section - x2, Hx Cholecystectomy, Hx Orthopedic Surgery - right wrist surgery - Immunizations Hx Diphtheria, Pertussis, Tetanus Vaccination: Yes - [id number] Review of Systems - Review of Systems Constitutional: No symptoms reported EENT: No symptoms reported Cardiovascular: See HPI, Chest pain Respiratory: See HPI, Cough. denies: Sputum Gastrointestinal: No symptoms reported Genitourinary: No symptoms reported Female Genitourinary: No symptoms reported Musculoskeletal: See HPI, Muscle pain Skin: No symptoms reported Hematologic/Lymphatic: No symptoms reported Neurological/Psychological: No symptoms reported -: Yes All other systems reviewed and negative Physical Exam - Vital signs Vitals: Temp Pulse Resp BP Pulse Ox 98.6 F 81 16 129/59 H 100 05/31/20 10:40 05/31/20 10:40 05/31/20 10:40 05/31/20 10:40 05/31/20 10:40 Interpretation: Normal - General General appearance: Alert In distress: None - HEENT Head: Normocephalic, Atraumatic Eyes: Normal Pupils: PERRL - Respiratory Respiratory status: No respiratory distress Chest status: Nontender Breath sounds: Normal. No: Wheezing Chest palpation: Other - Left posterior rib pain - Cardiovascular Rhythm: Regular Heart sounds: Normal auscultation Murmur: No Friction rub: No Gallop: None auscultated - Abdominal Inspection: Normal Distension: No distension Bowel sounds: Normal Tenderness: Nontender - Ab Organomegaly: No organomegaly - Back Back: Normal, Nontender - Extremities General upper extremity: Normal inspection General lower extremity: Normal inspection. No: Edema - Neurological Neuro grossly intact: Yes Orientation: AAOx4 Guerda Coma Scale Eye Opening: Spontaneous Guerda Coma Scale Verbal: Oriented Hardaway Coma Scale Motor: Obeys Commands Guerda Coma Scale Total: 15 - Psychological Associated symptoms: Normal affect, Normal mood - Skin Skin Temperature: Warm Skin Moisture: Dry Skin Color: Normal Course - Re-evaluation Re-evalutation: 05/31/20 15:52 Patient resting comfortably not showing any distress at this time. - Vital Signs Vital signs: Temp Pulse Resp BP Pulse Ox 98.6 F 81 16 129/59 H 100 05/31/20 10:40 05/31/20 10:40 05/31/20 10:40 05/31/20 10:40 05/31/20 10:40 05/31/20 15:53 Vital signs stable. - Laboratory Result Diagrams: 05/31/20 12:38 05/31/20 12:38 Laboratory results interpreted by me: 05/31/20 12:38 Potassium 5.3 H Glucose 166 H AST 42 H ALT 38 H Total Protein 8.5 H 05/31/20 15:53 Laboratory showed potassium of 5.3 mild elevation AST of 42 ALT 38 and a glucose of 166 total protein elevated at 8.5. 05/31/20 15:55 Influenza a and B both negative. Also negative strep test. COVID-19 test has been obtained patient understands that that will be a few days before that results. - Diagnostic Test Radiology reviewed: Image reviewed, Reports reviewed Radiology results interpreted by me: 05/31/20 15:53 Chest X-Ray 05/31/20 11:30 IMPRESSION: NO ACUTE RADIOGRAPHIC FINDING IN THE CHEST. Chest x-ray shows no radiographic finding in the chest. - EKG Interpretation by Me Additional EKG results interpreted by me: 05/31/20 15:54 Twelve-lead EKG shows a normal sinus rhythm rate of [address]-T wave changes normal intervals AK, QRS, QT intervals. Normal axis no evidence for an acute STEMI. Discharge - Discharge Clinical Impression: Upper respiratory infection, Suspected COVID-19 virus infection, Chest wall pain, Type 2 diabetes mellitus Condition: Stable Disposition: HOME, SELF-CARE Instructions: COVID-19 Guidance for Persons Under Investigation, Chest Wall Pain ([facility]), Upper Respiratory Illness ([facility]) Additional Instructions: Upper Respiratory Illness You have a viral infection of the respiratory passages -- a "cold." This common infection causes nasal congestion, drainage, and often sore throat and cough. It is caused by a virus and is highly contagious. The disease usually lasts a week or more, though the worst symptoms are usually over in 3 or 4 days. There is no "cure" for the viral infection -- it must run its course. If there is a complication, such as bacterial infection in the nose, sinuses, middle ear, or bronchial tubes, antibiotics may be required, but antibiotics won't affect the virus. If you smoke, you should STOP!! Drink plenty of fluids. A humidifier may help. An expectorant medication or decongestant may make you more comfortable. Use acetaminophen or ibuprofen for fever or aches. See the doctor if fever persists over two or three days, if there is any significant worsening of your symptoms, or if you simply fail to improve as expected. Recommend [id number] medications. Most likely an viral infection. Take Tylenol as needed for pain and chest wall pain that you noticed. Consider cloe-gix-idvrkwv cough tablets as needed. Forms: Return to Work Referrals: JOSAFAT DOWD PA-C [Primary Care Provider] - Follow up as needed I personally performed the services described in the documentation, reviewed and edited the documentation which was dictated to the scribe in my presence, and it accurately records my words and actions.
[2020-05-31 16:06] VITALS: BP 134/62
--- NOTE | 2020-06-01 00:01 | EKG REPORT ---
SEVERITY:- ABNORMAL ECG - SINUS RHYTHM NONSPECIFIC T ABNORMALITIES, LATERAL LEADS : Confirmed by: Mora Figueroa 31-May-2020 23:59:26
== END 2020-05-31 16:13 | disposition home or self-care (01) ==
LOC: ER 10:22
DX: U07.1 COVID-19 (principal); J06.9 Acute upper respiratory infection, unspecified; R07.89 Other chest pain; R05 Cough; M79.10 Myalgia, unspecified site; E11.9 Type 2 diabetes mellitus without complications; E78.00 Pure hypercholesterolemia, unspecified; I10 Essential (primary) hypertension; J45.909 Unspecified asthma, uncomplicated; K21.9 Gastro-esophageal reflux disease without esophagitis; M19.90 Unspecified osteoarthritis, unspecified site; Z79.4 Long term (current) use of insulin; Z79.899 Other long term (current) drug therapy; Z79.1 Long term (current) use of non-steroidal anti-inflammatories (NSAID); R74.01 Elevation of levels of liver transaminase levels
CPT/HCPCS: 93005; 99285; 36415; 87070; 87880; 82550; 85025; 80053; 84484; 87804; 71045; 93010; U0003; C9803; 87635

== ENCOUNTER → 2020-06-24 | Outpatient (CLI) | payer BC ==
--- NOTE | 2020-06-24 16:15 | RADIOLOGY REPORT (SQ) ---
EXAM DESCRIPTION: CAROTID DOPPLER IMAGES COMPLETED DATE/TIME: 06/24/2020 1:44 pm REASON FOR STUDY: PARATHESIA OF THE SKIN R20.2 PARESTHESIA OF SKIN COMPARISON: None. TECHNIQUE: Grayscale ultrasound, Doppler velocity and spectra, and color Doppler images acquired of the extra-cranial carotid and vertebral arteries. Images stored on PACS. LIMITATIONS: None. FINDINGS: RIGHT CAROTID CCA Velocities: Within normal limits. ICA Velocities Peak systolic 100 cm/s. End diastolic 23 cm/s. Proximal ICA/CCA peak systolic ratio 1.4. Spectra normal. No significant plaque. LEFT CAROTID CCA Velocities: Within normal limits. ICA Velocities Peak systolic 80 cm/s. End diastolic 22 cm/s. Proximal ICA/CCA peak systolic ratio 1.2. Grayscale demonstrate shadowing plaque which limits luminal evaluation. VERTEBRAL ARTERIES: Antegrade flow. Normal waveforms. SUBCLAVIAN ARTERIES: Not imaged. OTHER: No other significant finding. IMPRESSION: No hemodynamically significant stenosis. Antegrade vertebral arteries. COMMENT: Quality ID #[id number]: Velocity criteria are extrapolated from the diameter data as defined by t he Society of Radiologists in Ultrasound Consensus Conference. Radiology 2003: 229; 340-346. TECHNICAL DOCUMENTATION: JOB ID: [id number] 2010 [employer]- All Rights Reserved Reading location - IP/workstation name: [email or web address]
== END ==
LOC: RAD 13:15
PROVIDERS: ATTEND Physician Assistant
DX: R20.2 Paresthesia of skin (principal)
CPT/HCPCS: 93880